=== PATIENT | male | born 1980 | race Hispanic/Latino ===

== ENCOUNTER 2016-04-18 08:42 | Emergency (ER) | payer SELFPAY ==
[~2016-04-18] VITALS: Ht 172.7 cm; Wt 80.4 kg
[~2016-04-18 08:42] MED LIST: CITRATE OF MAG296 ML PO; CLINDAMYCIN HC150 MG PO; DILANTIN100 MG PO; KEPPRA250 MG PO; KEPPRA500 MG PO; LISINOPR PO; LISINOPRIL5 MG PO; NAPROSYN500 MG PO; NORCO 5/3251 TABLET PO; PEN-VEE K,VEET500 MG PO; PERCOCET 5/31 TABLET PO; PRINIVIL5 MG PO
[2016-04-18 10:30] LABS: HEMATOCRIT 42.3 % (38.0-50.0); MCH 31.9 PG (29.0-34.0); MCHC 34.3 G/DL (30.0-36.0); MCV 93.2 FL (86-99); MEAN PLAT.VOLUME 9.6 uM^3 (9.0-12.4); PLATELET COUNT 200 K/uL (156-360); RBC DIS.WIDTH-CV 13.2 % (11.8-14.6); RED BLOOD COUNT 4.54 M/uL (4.00-5.50); WHITE BLOOD COUNT 7.8 K/uL (4.1-10.2)
[2016-04-18 10:45] LABS: CHLORIDE 106 mEq/L (99-109); POTASSIUM 4.1 mEq/L (3.7-5.4); SODIUM 138 mEq/L (136-147)
[2016-04-18 10:47] LABS: GLUCOSE 91 mg/dL (70-99)
[2016-04-18 10:49] LABS: ANION GAP 11 MEQ/L (2-14); TOTAL BILIRUBIN 0.3 mg/dL (0.0-1.0)
[2016-04-18 10:51] LABS: ALKALINE PHOSPHATASE 90 IU/L (3-129); GFR ESTIMATE (CALCULATED) > 59 mL/min/
[2016-04-18 10:52] LABS: UREA NITROGEN (BUN) 11 mg/dL (9-23)
[2016-04-18] MEDS ORDERED: DILANTIN100 MG PO (10:55)
[2016-04-18] MEDS ORDERED: KEPPRA500 MG PO (10:55)
[2016-04-18] MEDS ORDERED: MOTRIN600 MG PO (10:59)
[2016-04-18 11:02] LABS: ADD MIUA? NO; BILIRUBIN NEGATIVE; BLOOD NEGATIVE; COLOR YELLOW ((YELLOW)); GLUCOSE (STRIP) NEGATIVE; KETONES NEGATIVE; LEUKOCYTES NEGATIVE; NITRITE NEGATIVE; PROTEIN (STRIP) NEGATIVE; SPECIFIC GRAVITY 1.015 (1.000-1.030); UROBILINOGEN 0.2 MG/DL (0.2-1.0)
[2016-04-18 13:48] VITALS: BP 99/61
== END 2016-04-18 13:49 | disposition home or self-care (01) ==
LOC: EME 08:42
PROVIDERS: Emergency Medicine
DX: G40.909 Epilepsy, unspecified, not intractable, without status epilepticus (principal); R10.11 Right upper quadrant pain; M25.512 Pain in left shoulder; F17.200 Nicotine dependence, unspecified, uncomplicated; Z91.14 Patient's other noncompliance with medication regimen
CPT/HCPCS: 73030; 74176; 80053; 81003; 85027; 99281; 99284